=== PATIENT | male | born 1985 | race Caucasian/White ===

== ENCOUNTER → 2019-02-21 | Day surgery (SDC) | payer BC ==
[~2019-02-21] MED LIST: LIDOCAINE 1%/EPI 1:100,000 20 ML VIAL. INJ ONE; LIDOCAINE 1%/EPI 1:100,000 20 ML VIAL. ONE
[2019-02-21 12:40] VITALS: BP 116/72
--- NOTE | 2019-02-22 18:06 | PATHOLOGY ---
[facility] Accession Number: [id number] . 01 Material submitted: . back - SKIN AND SEBCUTANEOUS MASS MID LEFT BACK. Modifiers: mid, left . 02 Diagnosis: Skin and subcutaneous tissue, mass, mid left back, excision: - Epidermal inclusion cyst. . (JP:mm; 02/22/2019) [facility]/02/22/2019 . 02 Comment: There is no evidence of malignancy. . ([facility]:mm; 02/22/2019) . 02 Electronically signed: . Javy Bobby MD, Pathologist NPI- [id number] . 01 Gross description: . The specimen is received in formalin, labeled "Paul Marcos, skin and subcutaneous mass mid left back", is an unoriented ellipse of petit-white skin measuring 2.0 x 0.4 cm with underlying intact, rojas-white cyst measuring 1.1 x 1.1 x 1.0 cm filled with rojas-white, friable material. The margins are inked black and serially sectioned. Also within the container is an irregular fragment of petit-white, rubbery soft tissue measuring 0.5 x 0.5 x 0.2 cm, inked black and bisected. This fragment is entirely submitted with maintenance representative tissue of the cyst in A1. ([facility]; 02/21/2019) [facility] . 02 Pathologist provided ICD-10: L72.0 . 02 CPT . 513392 Specimen Comment: A courtesy copy of this report has been sent to Specimen Comment: [phone]. Specimen Comment: Report sent to Performed at: [address], [place], [place] [id number] MD Seb Powers MD Phone: [phone] Performed at: [address] [id number] MD Javy Bobby MD Phone: [phone]
--- NOTE | 2019-03-03 13:13 | PDOC ---
BRIEF OPERATIVE NOTE Date: Feb 21, 2019 Pre-Op Diagnosis cyst back Post-Op Diagnosis same Procedure Performed excision Surgeon Kole Anesthesia Type: Local Blood Loss none IV Fluid none Specimens Obtained skin and subcutaneous tissue, back Findings cyst Complications none Operative Note # [id number] AMANDA COOK MD March 03, 2019 13:13
--- NOTE | 2019-03-03 13:50 | OP ---
DATE OF SURGERY: PREOPERATIVE DIAGNOSIS: Cyst of the back. POSTOPERATIVE DIAGNOSIS: Cyst of the back. PROCEDURE: Excision. DESCRIPTION OF PROCEDURE: The patient placed prone. The area around the lesion prepped and draped in usual sterile fashion. Lidocaine 1% width infiltrated. Mass excised with overlying skin. Wound closed with interrupted 3-0 Vicryl and 4-0 Monocryl. Steri-Strips and sterile dressing. The patient tolerated well. AMANDA COOK MD DR: SHARLENE/frances JOB#: [id number] / [id number]
--- NOTE | 2019-03-09 12:03 | OP ---
DATE OF SURGERY: 02/21/2019 PREOPERATIVE DIAGNOSIS: Cyst of the back. POSTOPERATIVE DIAGNOSIS: Cyst of the back. PROCEDURE: Excision. DESCRIPTION OF PROCEDURE: The patient placed prone. The area around the lesion prepped and draped in usual sterile fashion. Lidocaine 1% width infiltrated. Mass excised with overlying skin. Wound closed with interrupted 3-0 Vicryl and 4-0 Monocryl. Steri-Strips and sterile dressing. The patient tolerated well. AMANDA COOK MD DR: SHARLENE/frances JOB#: [id number] / [id number]
== END | disposition home or self-care (01) ==
LOC: SURG 12:31
PROVIDERS: ATTEND Surgery
DX: L72.0 Epidermal cyst (principal)
CPT/HCPCS: 11403; 88304; J3490